=== PATIENT | male | born 1990 | race Caucasian/White ===

== ENCOUNTER 2017-12-09 21:16 | Emergency (ER) | payer BC, OTHER, SELFPAY ==
[2017-12-09] MEDS ORDERED: Benzonatate 100 MG CAP ONE (21:47)
[2017-12-09] MEDS ORDERED: methylPREDNISolone Acetate 40 mg/ml Vial ONE (22:16)
--- NOTE | 2017-12-09 23:03 | RAD ---
CHEST TWO VIEWS: Date: 12-09-17 FINDINGS: The heart is normal in size and the lungs are clear. No infiltrate or effusion was seen. There is no sign of pneumonia currently. The mediastinum appears normal. The bony structures were unremarkable. IMPRESSION: No acute thoracic finding. POS: HOME
== END 2017-12-09 22:38 | disposition home or self-care (01) ==
LOC: BURERS 21:16
DX: R05 Cough (principal); F17.220 Nicotine dependence, chewing tobacco, uncomplicated
CPT/HCPCS: 71046; 96372; J1030

== ENCOUNTER 2023-03-19 10:00 | Emergency (ER) | payer BC, SELFPAY ==
[2023-03-19] MEDS ORDERED: Fluorescein Opthalmic Strip ONE (10:09)
[2023-03-19] MEDS ORDERED: Tetracaine 0.5% PF 4 ML BOT ONE (10:09)
== END 2023-03-19 10:52 | disposition home or self-care (01) ==
LOC: BURERS 10:00
DX: H10.11 Acute atopic conjunctivitis, right eye (principal); F17.220 Nicotine dependence, chewing tobacco, uncomplicated
CPT/HCPCS: 99283